=== PATIENT | female | born 1970 | race Caucasian/White ===

== ENCOUNTER → 2018-07-04 | Outpatient (CLI) | payer MEDICARE, BC ==
--- NOTE | 2018-07-04 10:35 | Diagnostic Imaging Report ---
Right knee MRI without contrast. History: Knee pain. Medial meniscus tear. Decreased range of motion. Pain not responding to conservative management. Comparison: None. Technique: Multiplanar multi-sequence MRI of the knee without contrast. Findings: Medial compartment: Degeneration and undersurface fraying at the posterior horn of the medial meniscus best seen on sagittal image 19. No meniscal tear, cartilage abnormality, or MCL tear. Lateral compartment: Degeneration and fraying of the lateral meniscus. No meniscal tear or cartilage abnormality. The LCL complex is normal. Intercondylar notch: Scarring and mucoid degeneration of the anterior cruciate ligament. The ACL and PCL are otherwise intact. Patellofemoral compartment: No chondromalacia or patellar dislocation. Extensor mechanism: The quadriceps and patellar tendons are normal. Other findings: There is a joint effusion and synovitis. There is no acute fracture, subluxation or avascular necrosis. Scattered nonspecific regions of bone marrow edema in the distal femur, proximal tibia and proximal fibula could be due to regions of stress response. No cortical fracture is seen. IMPRESSION: Degeneration and undersurface fraying at the posterior horn of the medial meniscus. Degeneration and fraying of the lateral meniscus. Scarring and mucoid degeneration of the anterior cruciate ligament. Scattered nonspecific regions of bone marrow edema in the distal femur, proximal tibia and proximal fibula could be due to regions of stress response. No cortical fracture is seen. Signed by: Dr. Jed Davison M.D. on 07/04/2018 10:31 AM
== END ==
LOC: MRI 08:55
PROVIDERS: ATTEND Specialist
DX: S83.241A Other tear of medial meniscus, current injury, right knee, initial encounter (principal)

== ENCOUNTER → 2024-02-25 | Day surgery (SDC) | payer BC, MEDICARE, OTHER ==
[2024-02-18 10:43] LABS: BASOPHILS # (AUTO) 0.1 (0.0-0.1); BASOPHILS % 1.6 % (0.0-1.0); EOSINOPHILS # (AUTO) 0.2 (0.0-0.4); EOSINOPHILS % 4.6 % (0.0-6.0); HEMOGLOBIN 11.5 g/dL (12.0-16.0); LYMPHOCYTES # (AUTO) 1.3 (1.0-3.2); LYMPHOCYTES % 29.4 % (18.0-39.1); MEAN CORPUSCULAR HEMOGLOBIN 31.2 pg (28-32); MEAN CORPUSCULAR HGB CONC 31.9 g/dL (31-35); MEAN CORPUSCULAR VOLUME 97.6 fL (81-99); MONOCYTES # (AUTO) 0.4 (0.2-0.8); MONOCYTES % 9.7 % (4.4-11.3); NEUTROPHILS # (AUTO) 2.4 (2.1-6.9); NEUTROPHILS % 54.5 % (38.7-80.0); PLATELET COUNT 222 x10e3/uL (140-360); RED BLOOD COUNT 3.69 x10e6/uL (3.6-5.1); WHITE BLOOD COUNT 4.35 x10e3/uL (4.8-10.8)
[~2024-02-25] MED LIST: ALPRAZOLAM0.5 MG PO; BACLOFEN10 MG PO; CALCIUM CITRAT250 MG PO; EPHEDRINE SULFATE INJ 50 MG/ML VIAL ONE; FLOMAX0.4 MG PO; GABAPENTIN800 MG PO; GLEEVEC100 MG PO; HYDROCODON-ACE1 EAC9 PO; KESIMPTA P20 MG/0.4; LIDOCAINE HCL 2% LOCAL INJ 5 ML SDV VIAL INJ ONE; MIDAZOLAM HCL 2 MG/2 ML VIAL ONE; MULTIVITAMINS1 EAC4 PO; NUVIGIL150 MG PO; OMEPRAZOLE40 MG PO; ONDANSETRON HCL INJ 2MG/ML 2ML 2 MG/ML VIAL ONE; PHENYLEPHRINE HCL 1% 10 MG/ML VIAL ONE; PROPOFOL IV EMULSION 10 MG/ML 20 ML VIAL ONE; PROPOFOL IV EMULSION 50 ML IV ONE; SERTRALINE HCL50 MG PO; SODIUM CHLORIDE 0.9% 100 ML ONE; VITAMIN C1000 MG PO; VITAMIN D350 MCG PO
[2024-02-25] MEDS: LACTATED RINGER'S 1,000 ML ONE (08:20)
[2024-02-25] MEDS: SCOPOLAMINE 1 MG PATCH ONE (08:21)
[2024-02-25 09:57] VITALS: TEMP 97.3
[2024-02-25] MEDS: ONDANSETRON HCL INJ 2MG/ML 2ML 2 MG/ML VIAL IV ONE (10:13)
[2024-02-25 10:25] VITALS: BP 100/56; PULSE 80; RESP 18; O2SAT 99
[2024-02-25 12:28] LABS: CDIFF AG QUIK CHEK NEGATIVE (NEGATIVE); CDIFF TOX QUIK CHEK NEGATIVE (NEGATIVE)
[2024-02-26 21:05] LABS: C-REACTIVE PROTEIN 3 mg/L (0-10)
[2024-02-29 07:13] LABS: ENDOMYSIAL ANTIBODIES, IGA Negative (Negative)
[2024-02-29 08:18] LABS: IMMUNOGLOBULIN A 109 mg/dL (87-352); TISSUE TRANSGLUTAMINASE IGA AB <2 U/mL (0-3)
== END | disposition home or self-care (01) ==
LOC: OR 07:48
PROVIDERS: ATTEND Internal Medicine Gastroenterology
DX: K29.50 Unspecified chronic gastritis without bleeding (principal); D12.5 Benign neoplasm of sigmoid colon; D13.2 Benign neoplasm of duodenum; K62.1 Rectal polyp; K63.89 Other specified diseases of intestine; K31.89 Other diseases of stomach and duodenum; K20.90 Esophagitis, unspecified without bleeding; K21.9 Gastro-esophageal reflux disease without esophagitis; K44.9 Diaphragmatic hernia without obstruction or gangrene; K57.30 Diverticulosis of large intestine without perforation or abscess without bleeding; K64.8 Other hemorrhoids; Z98.84 Bariatric surgery status; G35 Multiple sclerosis; N39.0 Urinary tract infection, site not specified; F17.290 Nicotine dependence, other tobacco product, uncomplicated; Z88.0 Allergy status to penicillin; Z01.810 Encounter for preprocedural cardiovascular examination; Z01.812 Encounter for preprocedural laboratory examination; Z79.899 Other long term (current) drug therapy
CPT/HCPCS: 36415; 43239; 43251; 45380; 45385; 82784; 83516; 83630; 83993; 85025; 86140; 86256; 87045; 87177; 87324; 87328; 87449; 88305; 88342; 93005; J2003; J2250; J2371; J2405; J2470; J2704 ×2; J7050; J7121; 45378

== ENCOUNTER → 2024-03-30 | Outpatient (REF) | payer OTHER ==
[~2024-03-30] MED LIST changes: -EPHEDRINE SULFATE INJ 50 MG/ML VIAL ONE; -LIDOCAINE HCL 2% LOCAL INJ 5 ML SDV VIAL INJ ONE; -MIDAZOLAM HCL 2 MG/2 ML VIAL ONE; -ONDANSETRON HCL INJ 2MG/ML 2ML 2 MG/ML VIAL ONE; -PHENYLEPHRINE HCL 1% 10 MG/ML VIAL ONE; -PROPOFOL IV EMULSION 10 MG/ML 20 ML VIAL ONE; -PROPOFOL IV EMULSION 50 ML IV ONE; -SODIUM CHLORIDE 0.9% 100 ML ONE
== END ==
LOC: DX 08:45
PROVIDERS: ATTEND Nurse Practitioner
DX: K31.7 Polyp of stomach and duodenum (principal); Z86.0100 Personal history of colon polyps, unspecified
CPT/HCPCS: 74280

== ENCOUNTER → 2024-04-26 | Day surgery (SDC) | payer BC, MEDICARE, OTHER ==
[2024-04-19 10:42] LABS: BASOPHILS # (AUTO) 0.1 (0.0-0.1); BASOPHILS % 1.8 % (0.0-1.0); EOSINOPHILS # (AUTO) 0.3 (0.0-0.4); EOSINOPHILS % 5.9 % (0.0-6.0); HEMATOCRIT 34.4 % (34.2-44.1); HEMOGLOBIN 11.2 g/dL (12.0-16.0); LYMPHOCYTES # (AUTO) 1.4 (1.0-3.2); LYMPHOCYTES % 30.8 % (18.0-39.1); MEAN CORPUSCULAR HEMOGLOBIN 30.5 pg (28-32); MEAN CORPUSCULAR HGB CONC 32.6 g/dL (31-35); MEAN CORPUSCULAR VOLUME 93.7 fL (81-99); MONOCYTES # (AUTO) 0.4 (0.2-0.8); MONOCYTES % 8.7 % (4.4-11.3); NEUTROPHILS # (AUTO) 2.3 (2.1-6.9); NEUTROPHILS % 52.6 % (38.7-80.0); PLATELET COUNT 243 x10e3/uL (140-360); RED BLOOD COUNT 3.67 x10e6/uL (3.6-5.1); RED CELL DISTRIBUTION WIDTH 13.8 % (11.7-14.4); WHITE BLOOD COUNT 4.38 x10e3/uL (4.8-10.8)
[~2024-04-26] MED LIST changes: +CIPRO250 MG PO; +DICYCLOMINE HCL20 MG PO; +FENTANYL CITRATE/PF 100MCG/2 ML INJ ONE; +GLUCAGON FOR INJ 1 MG VIAL ONE; +LEVOCETIRIZINE D5 MG PO; +LIDOCAINE HCL 2% LOCAL INJ 5 ML SDV VIAL INJ ONE; +ONDANSETRON HCL INJ 2MG/ML 2ML 2 MG/ML VIAL ONE; +PROPOFOL IV EMULSION 10 MG/ML 20 ML VIAL ONE
[2024-04-26] MEDS: LACTATED RINGER'S 1,000 ML ONE (06:41)
[2024-04-26 08:20] VITALS: TEMP 97.6
[2024-04-26 08:50] VITALS: BP 100/56; PULSE 68; RESP 12; O2SAT 98
== END | disposition home or self-care (01) ==
LOC: OR 05:49
PROVIDERS: ATTEND Internal Medicine Gastroenterology
DX: K31.7 Polyp of stomach and duodenum (principal); K44.9 Diaphragmatic hernia without obstruction or gangrene; K29.70 Gastritis, unspecified, without bleeding; K31.89 Other diseases of stomach and duodenum; K21.9 Gastro-esophageal reflux disease without esophagitis; Z98.84 Bariatric surgery status; C95.90 Leukemia, unspecified not having achieved remission; D64.9 Anemia, unspecified; G35 Multiple sclerosis; M21.371 Foot drop, right foot; M81.0 Age-related osteoporosis without current pathological fracture; Z88.0 Allergy status to penicillin; Z01.812 Encounter for preprocedural laboratory examination; Z79.60 Long term (current) use of unspecified immunomodulators and immunosuppressants; Z79.899 Other long term (current) drug therapy
CPT/HCPCS: 36415; 43236; 43239; 43251; 85025; 88305; J1610; J2003; J2405; J2470; J2704; J7121